=== PATIENT | female | born 1995 | race Caucasian/White ===

== ENCOUNTER → 2016-07-25 | Outpatient (CLI) | payer OTHER ==
[~2016-07-25] MED LIST: E-Z PAQUE 60% w/v SUSP 355ML BOTTLE As Ordered ONE; E-Z-GAS II EFFERVESCENT PACKET (SODIUM BICARB./CITRIC ACID/SIMETHICONE) As Ordered ONE; E-Z-HD 98% w/w 340GM SUSP BTL As Ordered ONE
--- NOTE | 2016-07-25 16:48 | REP ---
ESOPHAGRAM: The procedure was performed under the direct supervision of Dr. Puentes. The images were reviewed with Dr. Puentes. A single view PA chest x-ray is submitted as a driveway attendant film. The superior mediastinal structures are midline. The heart size is within normal limits. The lungs are clear. Liquid barium and gas-producing granules were given in the erect position as well as liquid barium in the prone oblique positions in order to perform a double-contrast esophagram examination. The oral and pharyngeal stage of deglutition are unremarkable. Esophageal transport is prompt and efficient and there is no esophagitis, stricture or mucosal ring. There is a sliding type hiatal hernia present. Gastroesophageal reflux is not demonstrated on this examination. IMPRESSION: There is a sliding type hiatal hernia present, otherwise unremarkable double contrast esophagram examination. 1 minute and 11 seconds of fluoroscopic time was utilized for this procedure. Reviewed by LING Flower 07/26/2016 01:23 PEdited and Signed by Bradly Puentes MD 07/26/2016 08:03 P
== END ==
LOC: M RAD 09:53
PROVIDERS: ATTEND Nurse Practitioner Family
DX: R13.14 Dysphagia, pharyngoesophageal phase (principal); K44.9 Diaphragmatic hernia without obstruction or gangrene

== ENCOUNTER → 2016-08-19 | Outpatient (REF) | payer OTHER ==
[2016-08-19 17:02] LABS: CONTROL LINE HCG INT CTR LINE PRESENT
[2016-08-19 17:16] LABS: FREE T4 0.98 NG/DL (0.76-1.46)
== END ==
LOC: M SFHCPLAZ 15:14
PROVIDERS: ATTEND Nurse Practitioner Family
DX: N91.2 Amenorrhea, unspecified (principal)

== ENCOUNTER 2016-11-25 10:29 | Emergency (ER) | payer OTHER ==
[~2016-11-25] VITALS: Ht 167.6 cm; Wt 142.8 kg
[2016-11-25] MEDS ORDERED: TRINTAB3 PO (10:40)
[2016-11-25] MEDS ORDERED: ZYRT10CA PO (10:40)
[2016-11-25] MEDS ORDERED: ALBU17IN2 INH (10:40)
[2016-11-25] MEDS ORDERED: NS 1,000 ML IV ONE (11:30)
--- NOTE | 2016-11-25 12:08 | REP ---
Clinical: Irregular uterine bleeding . Technique: Transabdominal pelvic ultrasound followed by transvaginal examination for better evaluation of the endometrium and adnexa. Findings: Bladder is unremarkable and measures 6.3 x 3.5 x 4.9 cm . Normal anteverted uterus measures 9.2 x 4.4 x 5.6 cm . The endometrial complex measures 6.5 mm thickness. No discrete uterine or endometrial abnormalities are appreciated. Incidental Nabothian cysts noted in the lower uterine segment. Bilateral ovaries are not visualized. No free fluid or adnexal mass lesion identified. Impression: 1. Normal appearance to the uterus. 2. No free fluid or adnexal mass lesion identified. 3. Ovaries not visualized. Signed by Roddy Butterfield MD 11/25/2016 11:59 A
[2016-11-25 12:18] LABS: BASO % 0.8 % (0.0-1.0); EOS # 0.1 K/mm3 (0.0-0.50); EOS % 2.2 % (0.0-3.0); LARGE UNSTAINED CELL # 0.1 K/mm3 (0.0-0.4); LARGE UNSTAINED CELL % 2.1 % (0.0-4.0); LYMPH # 1.7 K/mm3 (1.5-6.5); MEAN CORPUSCULAR HEMOGLOBIN 31.9 pg (27.0-33.0); MEAN CORPUSCULAR HGB CONC 35.3 g/dl (32.0-36.5); MEAN CORPUSCULAR VOLUME 90.4 fl (80.0-96.0); MONO # 0.3 K/mm3 (0.0-0.8); MONO % 4.9 % (0.0-5.0); NEUTROPHILS # 3.7 K/mm3 (1.8-7.7); PLATELET COUNT, AUTOMATED 205 k/mm3 (150-450); RED CELL DISTRIBUTION WIDTH 13.7 % (11.5-14.5); WHITE BLOOD COUNT 5.9 K/mm3 (4.0-10.0)
[2016-11-25 12:38] LABS: ANION GAP 6 MEQ/L (8-16); BLOOD UREA NITROGEN 8 MG/DL (7-18); CALCIUM LEVEL 8.6 MG/DL (8.5-10.1); CARBON DIOXIDE LEVEL 29 MEQ/L (21-32); CHLORIDE LEVEL 107 MEQ/L (98-107); CREATININE FOR GFR 0.66 MG/DL (0.55-1.02); GLOMERULAR FILTRATION RATE > 60.0 (>60); GLUCOSE, FASTING 109 MG/DL (70-105); HCG, SERUM QUANTITATIVE < 1.0 MIU/ML; POTASSIUM SERUM 4.1 MEQ/L (3.5-5.1); SODIUM LEVEL 142 MEQ/L (136-145)
[2016-11-25 13:15] VITALS: BP 126/62
== END 2016-11-25 13:16 | disposition home or self-care (01) ==
LOC: M ED 10:29
DX: N92.0 Excessive and frequent menstruation with regular cycle (principal); N92.1 Excessive and frequent menstruation with irregular cycle; Z79.899 Other long term (current) drug therapy; Z79.3 Long term (current) use of hormonal contraceptives

== ENCOUNTER 2017-01-13 15:55 | Emergency (ER) | payer OTHER ==
[~2017-01-13] VITALS: Ht 167.6 cm; Wt 136.3 kg
[2017-01-13 15:55] VITALS: BP 137/78
[~2017-01-13 15:55] MED LIST changes: +ALBU17IN2 INH; -E-Z PAQUE 60% w/v SUSP 355ML BOTTLE As Ordered ONE; -E-Z-GAS II EFFERVESCENT PACKET (SODIUM BICARB./CITRIC ACID/SIMETHICONE) As Ordered ONE; -E-Z-HD 98% w/w 340GM SUSP BTL As Ordered ONE; +TRINTAB3 PO; +ZYRT10CA PO
[2017-01-13] MEDS ORDERED: [UNRECOGNIZED DRUG - CODE] PO (16:23)
== END 2017-01-13 18:25 | disposition home or self-care (01) ==
LOC: M ED 15:55
DX: S61.411A Laceration without foreign body of right hand, initial encounter (principal); X58.XXXA Exposure to other specified factors, initial encounter; Y92.099 Unspecified place in other non-institutional residence as the place of occurrence of the external cause; Y93.9 Activity, unspecified; Y99.9 Unspecified external cause status; Z79.899 Other long term (current) drug therapy

== ENCOUNTER 2017-02-17 13:21 | Outpatient (CLI) | payer OTHER ==
[~2017-02-17] VITALS: Ht 167.6 cm; Wt 138.7 kg
[~2017-02-17 13:21] MED LIST changes: +[UNRECOGNIZED DRUG - CODE] PO
[2017-02-17] MEDS ORDERED: PROPOFOL 200 MG/20 ML VIAL As Ordered ONE ×2 (15:55→16:14)
--- NOTE | 2017-02-17 16:18 | ROOR ---
Patient Name: Jodee Corcoran Procedure Date: 02/17/2017 4:03 PM Date of : 1995 Age: 21 Room: [facility] Gender: Female Note Status: Finalized Procedure: Upper GI endoscopy Indications: Dysphagia Providers: Amos DAVIS MD Referring MD: Eden Sandoval NP Requesting Provider: Medicines: Monitored Anesthesia Care Complications: No immediate complications. Procedure: Pre-Anesthesia Assessment: - The heart rate, respiratory rate, oxygen saturations, blood pressure, adequacy of pulmonary ventilation, and response to care were monitored throughout the procedure. The Endoscope was introduced through the mouth, and advanced to the second part of duodenum. The upper GI endoscopy was accomplished without difficulty. The patient tolerated the procedure well. Findings: Mucosal changes including longitudinal furrows and congestion (edema) were found in the entire esophagus. Biopsies were taken with a cold forceps for histology. The exam of the esophagus was otherwise normal. The entire examined stomach was normal. The examined duodenum was normal. Impression: - Esophageal mucosal changes suggestive of eosinophilic esophagitis (vs reflux esophagitis). Biopsied. - Normal stomach. - Normal examined duodenum. Recommendation: - Use Prilosec (omeprazole) 40 mg twice a day. - Telephone endoscopist for pathology results in 2 weeks. - (the script was sent to your pharmacy on file) Amos Davis MD Amos DAVIS MD 02/17/2017 4:17:54 PM This report has been signed electronically. Number of Addenda: 0 Note Initiated On: 02/17/2017 4:03 PM Estimated Blood Loss: Estimated blood loss: none.
[2017-02-17 16:45] VITALS: BP 133/81
== END 2017-02-17 16:55 | disposition home or self-care (01) ==
LOC: M OPP 13:21
PROVIDERS: ATTEND Internal Medicine Gastroenterology
DX: R13.10 Dysphagia, unspecified (principal); K22.8 Other specified diseases of esophagus; R12 Heartburn; J45.909 Unspecified asthma, uncomplicated; R06.83 Snoring; Z79.899 Other long term (current) drug therapy; Z80.6 Family history of leukemia; Z80.8 Family history of malignant neoplasm of other organs or systems; Z80.3 Family history of malignant neoplasm of breast; Z80.42 Family history of malignant neoplasm of prostate; Z80.49 Family history of malignant neoplasm of other genital organs

== ENCOUNTER → 2017-04-20 | Outpatient (REF) | payer OTHER | LOC: M SFHCWAGY 16:08 | PROVIDERS: ATTEND Nurse Practitioner Family | DX: Z12.4 Encounter for screening for malignant neoplasm of cervix (principal) ==

== ENCOUNTER → 2017-07-01 | Outpatient (REF) | payer OTHER ==
[2017-07-01 16:16] LABS: INFLUENZA A AMPLIFICATION NEGATIVE (NEGATIVE); INFLUENZA B AMPLIFICATION NEGATIVE (NEGATIVE)
== END ==
LOC: M SFHCLERA 11:10
DX: R50.9 Fever, unspecified (principal)
CPT/HCPCS: 87502

== ENCOUNTER → 2017-07-17 | Outpatient (REF) | payer OTHER ==
[2017-07-17 16:18] LABS: ANION GAP 9 MEQ/L (8-16); BLOOD UREA NITROGEN 8 MG/DL (7-18); CALCIUM LEVEL 8.6 MG/DL (8.5-10.1); CARBON DIOXIDE LEVEL 29 MEQ/L (21-32); CHLORIDE LEVEL 103 MEQ/L (98-107); CREATININE FOR GFR 0.57 MG/DL (0.55-1.30); FREE T4 0.93 NG/DL (0.76-1.46); GLOMERULAR FILTRATION RATE > 60.0 (>60); GLUCOSE, FASTING 83 MG/DL (70-100); POTASSIUM SERUM 4.1 MEQ/L (3.5-5.1); SODIUM LEVEL 141 MEQ/L (136-145)
== END ==
LOC: M SFHCPLAZ 14:05
DX: G24.5 Blepharospasm (principal); E66.01 Morbid (severe) obesity due to excess calories

== ENCOUNTER → 2017-08-09 | Outpatient (REF) | payer OTHER | LOC: M SFHCPLAZ 11:42 | DX: R30.0 Dysuria (principal) | CPT/HCPCS: 87086 ==

== ENCOUNTER → 2017-08-26 | Outpatient (REF) | payer OTHER ==
[2017-08-26 20:20] LABS: CHLAMYDIA DNA AMPLIFICATION NEGATIVE (NEGATIVE); GC DNA AMPLIFICATION NEGATIVE (NEGATIVE)
== END ==
LOC: M SFHCLERA 17:43
DX: R30.0 Dysuria (principal)

== ENCOUNTER 2017-10-10 15:02 | Emergency (ER) | payer OTHER ==
[2017-10-10] MEDS: IBUPROFEN 800 MG TAB PO (18:41)
== END 2017-10-10 18:47 | disposition home or self-care (01) ==
LOC: M ED 15:02
DX: S93.402A Sprain of unspecified ligament of left ankle, initial encounter (principal); X50.1XXA Overexertion from prolonged static or awkward postures, initial encounter; Y92.003 Bedroom of unspecified non-institutional (private) residence as the place of occurrence of the external cause; J45.909 Unspecified asthma, uncomplicated; K21.9 Gastro-esophageal reflux disease without esophagitis; E66.01 Morbid (severe) obesity due to excess calories; Z91.018 Allergy to other foods; Z79.899 Other long term (current) drug therapy
CPT/HCPCS: 73610

== ENCOUNTER → 2017-10-30 | Outpatient (REF) | payer OTHER ==
[2017-10-30 18:21] LABS: BASO % 0.4 % (0.0-1.0); EOS # 0.6 10^3/uL (0.0-0.50); HEMATOCRIT 41.7 % (36.0-47.0); HEMOGLOBIN 14.1 g/dl (12.0-15.5); IMMATURE GRANULOCYTE % 0.4 % (0-3.0); LYMPH # 3.1 10^3/uL (1.5-6.5); LYMPH % 33.5 % (24.0-44.0); MEAN CORPUSCULAR HEMOGLOBIN 29.4 pg (27.0-33.0); MEAN CORPUSCULAR HGB CONC 33.8 g/dl (32.0-36.5); MEAN CORPUSCULAR VOLUME 86.9 fl (80.0-96.0); MONO # 0.6 10^3/uL (0.0-0.8); NEUTROPHILS # 4.7 10^3/uL (1.8-7.7); NEUTROPHILS % 51.7 % (36.0-66.0); PLATELET COUNT, AUTOMATED 272 10^3/uL (150-450); RED CELL DISTRIBUTION WIDTH 12.5 % (11.5-14.5); WHITE BLOOD COUNT 9.1 10^3/uL (4.0-10.0)
== END ==
LOC: M SFHCPLAZ 15:41
DX: K92.1 Melena (principal)

== ENCOUNTER → 2019-12-26 | Outpatient (REF) | payer OTHER ==
[~2019-12-26] MED LIST changes: +OMEP40CA97; +TRINTAB PO; -TRINTAB3 PO
[2020-02-08 14:19] LABS: CHLAMYDIA DNA AMPLIFICATION NEGATIVE (NEGATIVE); GC DNA AMPLIFICATION NEGATIVE (NEGATIVE)
== END ==
LOC: M SFHCPLAZ 10:53
PROVIDERS: ATTEND Nurse Practitioner Family
DX: Z12.4 Encounter for screening for malignant neoplasm of cervix (principal)

== ENCOUNTER → 2021-05-21 | Outpatient (REF) ==
[~2021-05-21] MED LIST changes: +OMEP40CA4; -OMEP40CA97
== END ==
LOC: M LABSMTC 12:40
PROVIDERS: ATTEND Pediatrics
DX: Z20.822 Contact with and (suspected) exposure to COVID-19 (principal)

== ENCOUNTER 2023-03-25 09:25 | Emergency (ER) | payer OTHER, SELFPAY ==
[~2023-03-25] VITALS: Ht 167.6 cm; Wt 136.4 kg
[2023-03-25] MEDS ORDERED: ACET-683 PO (09:48)
[2023-03-25] MEDS ORDERED: IBUP200C25 PO (09:48)
[2023-03-25 11:59] LABS: BASO % 0.3 % (0.0-1.0); EOS # 0.1 10^3/uL (0.0-0.5); EOS % 0.8 % (0.0-3.0); HEMATOCRIT 40.8 % (36.0-47.0); HEMOGLOBIN 14.2 g/dl (12.0-15.5); LYMPH # 1.3 10^3/uL (1.5-5.0); LYMPH % 10.1 % (24.0-44.0); MEAN CORPUSCULAR HEMOGLOBIN 31.3 pg (27.0-33.0); MEAN CORPUSCULAR HGB CONC 34.8 g/dl (32.0-36.5); MEAN CORPUSCULAR VOLUME 90.1 fl (80.0-96.0); MONO # 0.9 10^3/uL (0.0-0.8); NEUTROPHILS # 10.1 10^3/uL (1.5-8.5); NEUTROPHILS % 81.5 % (36.0-66.0); PLATELET COUNT, AUTOMATED 212 10^3/uL (150-450); RED BLOOD COUNT 4.53 10^6/uL (4.00-5.40); WHITE BLOOD COUNT 12.4 10^3/uL (4.0-10.0)
[2023-03-25] MEDS ORDERED: AMOX500C PO (12:28)
[2023-03-25] MEDS ORDERED: FLUC150T9 PO (12:28)
[2023-03-25] MEDS ORDERED: FLON1SPR NARES (12:28)
[2023-03-25] MEDS ORDERED: DEXA4TA PO (12:28)
[2023-03-25 12:47] VITALS: BP 129/86; TEMP 100.5; O2SAT 97
== END 2023-03-25 12:48 | disposition home or self-care (01) ==
LOC: M ED 09:25
DX: J02.9 Acute pharyngitis, unspecified (principal); J45.909 Unspecified asthma, uncomplicated; Z91.018 Allergy to other foods; Z79.2 Long term (current) use of antibiotics; Z79.52 Long term (current) use of systemic steroids; Z79.899 Other long term (current) drug therapy

== ENCOUNTER → 2023-04-21 | Outpatient (REF) | payer OTHER ==
[~2023-04-21] MED LIST changes: +ACET-683 PO; +AMOX500C PO; +DEXA4TA PO; +FLON1SPR NARES; +FLUC150T9 PO; +IBUP200C25 PO
[2023-04-21 21:46] LABS: APPEARANCE, URINE HAZY (CLEAR); BACTERIA, URINE AUTO NEGATIVE (NEGATIVE); BILIRUBIN, URINE AUTO NEGATIVE (NEGATIVE); BLOOD, URINE BLOOD NEGATIVE (NEGATIVE); CALCIUM OXALATE CRYSTALS SMALL; COLOR, URINE YELLOW (YELLOW); GLUCOSE, URINE (UA) AUTO NEGATIVE (NEGATIVE); KETONE, URINE AUTO NEGATIVE (NEGATIVE); LEUKOCYTE ESTERASE, URINE AUTO 1+ (NEGATIVE); MUCUS, URINE SMALL (NEGATIVE); NITRITE, URINE AUTO NEGATIVE (NEGATIVE); PROTEIN, URINE AUTO NEGATIVE (NEGATIVE); RBC, URINE AUTO 0 /HPF (0-3); SPECIFIC GRAVITY URINE AUTO 1.026 (1.002-1.035); SQUAMOUS EPITHELIAL CELL UR AU 6 /HPF (0-6); WBC, URINE AUTO 3 /HPF (0-3)
== END ==
LOC: M LAB REF 21:08
PROVIDERS: ATTEND Physician Assistant
DX: N39.0 Urinary tract infection, site not specified (principal)

== ENCOUNTER 2023-11-30 20:07 | Emergency (ER) | payer OTHER ==
[~2023-11-30] VITALS: Ht 167.6 cm; Wt 105.1 kg
[2023-11-30] MEDS ORDERED: CETI-24 PO ×2 (20:13→22:46)
[2023-11-30] MEDS ORDERED: MACR100C43 PO (20:13)
[2023-11-30] MEDS ORDERED: DIPH50CA PO (20:16)
[2023-11-30 20:35] VITALS: TEMP 98.6
[2023-11-30] MEDS: NS 1,000 ML IV ONE (20:45)
[2023-11-30] MEDS: dexAMETHasone 20MG/5ML VIAL IV ONE (20:51)
[2023-11-30] MEDS: FAMOTIDINE 20MG/2ML VIAL IVP ONE (20:51)
[2023-11-30] MEDS: ALBUTEROL SULFATE 2.5MG/0.5ML INH NEB SOLN NEB ONE (22:07)
[2023-11-30] MEDS ORDERED: CIPR-250 PO (22:46)
[2023-11-30] MEDS ORDERED: PRED20TA PO (22:46)
[2023-11-30] MEDS ORDERED: PEPC1TAB5 PO (22:46)
[2023-11-30] MEDS: CIPROFLOXACIN 250MG TAB PO ONE (23:03)
[2023-11-30 23:43] VITALS: BP 118/78; O2SAT 96
== END 2023-11-30 23:55 | disposition home or self-care (01) ==
LOC: M ED 20:07
DX: N39.0 Urinary tract infection, site not specified (principal); T78.40XA Allergy, unspecified, initial encounter; K21.9 Gastro-esophageal reflux disease without esophagitis; F10.10 Alcohol abuse, uncomplicated; Z91.018 Allergy to other foods; Z79.52 Long term (current) use of systemic steroids; Z79.899 Other long term (current) drug therapy
CPT/HCPCS: 93041; 94640; 94760; 96361; 96374; 99284; J1100; S0028

== ENCOUNTER → 2024-02-01 | Outpatient (REF) | payer OTHER ==
[~2024-02-01] MED LIST changes: +CETI-24 PO; +CIPR-250 PO; +DIPH50CA PO; +MACR100C43 PO; +PEPC1TAB5 PO; +PRED20TA PO
== END ==
LOC: M LAB REF 12:24
PROVIDERS: ATTEND Student in an Organized Health Care Education/Training Program
DX: J06.9 Acute upper respiratory infection, unspecified (principal)